=== PATIENT | male | born 1990 | race Caucasian/White ===

== ENCOUNTER 2022-01-26 17:29 | Inpatient (IN) | payer OTHER ==
[2022-01-27 02:07] VITALS: RESP 18; BMI 24.0
[2022-01-27] MEDS ORDERED: IBUPROFEN 600 MG TABLET (FP) PO PRN (02:17)
[2022-01-27] MEDS ORDERED: ACETAMINOPHEN 325 MG TABLET (FP) PO PRN ×2 (02:17)
[2022-01-27] MEDS ORDERED: MAG HYDROX/AL HYDROX/SIMETH 30 ML UNIT-DOSE CUP PO PRN (02:17)
[2022-01-27] MEDS ORDERED: cloNIDine HCL 0.1 MG TABLET PO PRN (02:17)
[2022-01-27] MEDS ORDERED: IBUPROFEN 400 MG TABLET (FP) PO PRN (02:17)
[2022-01-27] MEDS ORDERED: MAGNESIUM CITRATE 300 ML BOTTLE PO PRN (02:17)
[2022-01-27] MEDS ORDERED: ONDANSETRON *ODT* 4 MG TABLET SL PRN (02:17)
[2022-01-27] MEDS ORDERED: BENZOCAINE/MENTHOL (CHLORASEPTIC ) LOZENGE MM PRN (02:17)
[2022-01-27] MEDS ORDERED: NICOTINE POLACRILEX 2 MG GUM BUC PRN (02:17)
[2022-01-27] MEDS ORDERED: DICYCLOMINE HCL 10 MG CAPSULE PO PRN (02:17)
[2022-01-27] MEDS ORDERED: BISMUTH SUBSALICYLATE 524 MG/30 ML PO PRN (02:17)
[2022-01-27] MEDS ORDERED: methaDONE HCL 10 MG TABLET (FOR DETOX USE ONLY) PO ONE (02:17)
[2022-01-27] MEDS ORDERED: MAGNESIUM HYDROX 2400MG/30ML ORAL SUSPENSION 30 ML CUP PO PRN (02:17)
[2022-01-27] MEDS ORDERED: METHOCARBAMOL 500 MG TABLET PO PRN (02:17)
[2022-01-27] MEDS ORDERED: LOPERAMIDE HCL 2 MG CAPSULE PO PRN (02:17)
[2022-01-27 09:23] VITALS: BP 113/74; PULSE 68; TEMP 97.5
[2022-01-27] MEDS ORDERED: PRENATAL VITAMINS W/ FOLIC ACID TABLET (FP) PO SCH (10:00)
[2022-01-27] MEDS ORDERED: NICOTINE 14 MG/24 HOURS TOPICAL PATCH TD SCH (10:00)
[2022-01-27 13:59] LABS: ALBUMIN 3.6 g/dl (3.4-5.0); BLOOD UREA NITROGEN 14.5 mg/dL (7-18); CALCIUM 9.7 mg/dL (8.5-10.1); HEMATOCRIT 35.8 % (35.4-49); HEMOGLOBIN 12.1 GM/dL (11.7-16.9); MCH 28.3 pg (25.7-33.7); MCHC 33.9 g/dl (32.0-35.9); MEAN CELL VOLUME 83.5 fl (80-96); MEAN PLT VOLUME 7.5 fl (7.5-11.1); PLATELET COUNT 263 10^3/uL (134-434); RBC 4.28 M/mm3 (4.00-5.60); RDW 13.5 % (11.9-15.9); WHITE BLOOD COUNT 6.3 K/mm3 (4.0-10.0)
[2022-01-27 14:04] LABS: BILIRUBIN,TOTAL 0.3 mg/dL (0.2-1)
[2022-01-27 14:05] LABS: TOT PROT 7.5 g/dl (6.4-8.2)
[2022-01-27 14:13] LABS: CREATININE 0.7 mg/dL (0.55-1.3)
[2022-01-27] MEDS ORDERED: THIAMINE HCL 100 MG TABLET (FP) PO SCH (22:00)
[2022-01-27] MEDS ORDERED: MELATONIN 5 MG TABLETS PO SCH (22:00)
[2022-01-29] MEDS ORDERED: methaDONE HCL 10 MG TABLET (FOR DETOX USE ONLY) PO ONE (10:00)
[2022-01-31] MEDS ORDERED: methaDONE HCL 10 MG TABLET (FOR DETOX USE ONLY) PO ONE (10:00)
== END 2022-01-27 10:56 | disposition left against medical advice (07) | DRG 770 ==
LOC: YASAS 17:29 → Y3N 01-27 02:38
PROVIDERS: ADMIT Allergy & Immunology; ATTEND Allergy & Immunology
PROC: HZ2ZZZZ Detoxification Services for Substance Abuse Treatment (ICD-10-PCS; principal; 2022-01-27)
DX: F11.23 Opioid dependence with withdrawal (principal); F17.210 Nicotine dependence, cigarettes, uncomplicated; Z28.310 Unvaccinated for COVID-19
CPT/HCPCS: 36415; 80053; 85027; 86780; C9803-CS; U0003; U0005